=== PATIENT | male | born 1980 | race Caucasian/White ===

== ENCOUNTER 2016-11-24 18:43 | Emergency (ER) | payer OTHER ==
[~2016-11-24] VITALS: Ht 193 cm; Wt 84.9 kg
[2016-11-24 19:08] VITALS: TEMP 37.7; Ht 193 cm; Wt 84.9 kg
[2016-11-24] MEDS ORDERED: SODIUM CHLORIDE 0.9% 1000ML 1,000 ML IV STA (20:08)
--- NOTE | 2016-11-24 20:26 | EMERGENCY ROOM VISIT NOTE ---
History First contact with patient: 19:35 Chief Complaint: DEHYDRATION Stated Complaint: DEHYDRATED POSSIBLE KIDNEY ISSUES Nursing Triage Summary: pt c/o "dehydration" states he has had diarrhea and "some vomiting" since thursday. states " a nohemi at work gave it to me." reports hx of kidney problems " 20 years ago." pt alert and oriented x4. breathing WNL. History of Present Illness The patient is a 36 year old male who presents to the Emergency Room with complaints of abdominal pain. The symptoms began on Thursday morning when the patient began feeling fatigued and unwell. This was accompanied by diarrhea and abdominal pain that worsened throughout the day. Thursday evening the patient complained of significant sweats that kept him up throughout the night. The patient also began to develop right sided flank pain over the weekend and has persisted until today. He also reports that he has limited fluid intake due to nausea and has been trying to drink Pedialyte to supplement his oral intake. He has a past medical history of renal surgery with shortening of the ureters at [facility] 20 years ago due to previous history of bladder enlargement and recurrent UTIs and kidney stones. He has been asymptomatic since the surgery was performed. He denies any burning on urination, radiating pain to his groin, fever, chills, or any other acute complaints. Review of Systems See HPI for pertinent positives and negatives. A total of ten systems were reviewed and were otherwise negative. Past Medical/Surgical History Surgical Problems: (1) History of bladder surgery Social History Smoking Status: Current Every Day Smoker Current/Historical Medications No Active Prescriptions or Reported Meds Physical Exam Vital Signs Date Time Temp Pulse Resp B/P (MAP) Pulse Ox O2 Delivery O2 Flow Rate FiO2 11/24/16 20:24 96 18 132/82 97 Room Air 11/24/16 19:08 37.7 112 18 141/77 99 Room Air Physical Exam GENERAL: Awake, alert, well-appearing, in no distress HENT: Normocephalic, atraumatic. Oropharynx unremarkable. EYES: Normal conjunctiva. Sclera non-icteric. NECK: Supple. No nuchal rigidity. RESPIRATORY: Clear to auscultation. CARDIAC: Regular rate, normal rhythm. Extremities warm and well perfused. Pulses equal. ABDOMEN: Soft, non-distended. Suprapubic tenderness. No rebound or guarding. No masses. RECTAL: Deferred. MUSCULOSKELETAL: Chest examination reveals no tenderness. The back is symmetrical on inspection without obvious abnormality. There is no CVA tenderness to palpation. Patient complaints of right lower back discomfort close at the are of the superior pelvis. LOWER EXTREMITIES: Calves are equal size bilaterally and non-tender. No edema. No discoloration. NEURO: Normal sensorium. No sensory or motor deficits noted. SKIN: No rash or jaundice noted. Medical Decision & Procedures Laboratory Results 11/24/16 20:20 Red Blood Count 5.19, Mean Corpuscular Volume 83.4, Mean Corpuscular Hemoglobin 31.0, Mean Corpuscular Hemoglobin Concent 37.2, Mean Platelet Volume 9.4, Neutrophils (%) (Auto) 87.1, Lymphocytes (%) (Auto) 5.6, Monocytes (%) (Auto) 5.6, Eosinophils (%) (Auto) 0.8, Basophils (%) (Auto) 0.1, Neutrophils # (Auto) 12.52, Lymphocytes # (Auto) 0.80, Monocytes # (Auto) 0.80, Eosinophils # (Auto) 0.11, Basophils # (Auto) 0.02 11/24/16 20:20 Test 11/24/16 20:20 White Blood Count 14.36 K/uL (4.8-10.8) Red Blood Count 5.19 M/uL (4.7-6.1) Hemoglobin 16.1 g/dL (14.0-18.0) Hematocrit 43.3 % (42-52) Mean Corpuscular Volume 83.4 fL (80-100) Mean Corpuscular Hemoglobin 31.0 pg (25-34) Mean Corpuscular Hemoglobin Concent 37.2 g/dl (32-36) Platelet Count 167 K/uL (130-400) Mean Platelet Volume 9.4 fL (7.4-10.4) Neutrophils (%) (Auto) 87.1 % Lymphocytes (%) (Auto) 5.6 % Monocytes (%) (Auto) 5.6 % Eosinophils (%) (Auto) 0.8 % Basophils (%) (Auto) 0.1 % Neutrophils # (Auto) 12.52 K/uL (1.4-6.5) Lymphocytes # (Auto) 0.80 K/uL (1.2-3.4) Monocytes # (Auto) 0.80 K/uL (0.11-0.59) Eosinophils # (Auto) 0.11 K/uL (0-0.5) Basophils # (Auto) 0.02 K/uL (0-0.2) RDW Standard Deviation 37.7 fL (36.4-46.3) RDW Coefficient of Variation 12.4 % (11.5-14.5) Immature Granulocyte % (Auto) 0.8 % Immature Granulocyte # (Auto) 0.11 K/uL (0.00-0.02) Anion Gap 9.0 mmol/L (3-11) Est Creatinine Clear Calc Drug Dose 120.3 ml/min Estimated GFR () 110.2 Estimated GFR (Non- 95.1 BUN/Creatinine Ratio 14.9 (10-20) Calcium Level 8.6 mg/dl (8.5-10.1) Total Bilirubin 8.0 mg/dl (0.2-1) Direct Bilirubin 6.3 mg/dl (0-0.2) Aspartate Amino Transf (AST/SGOT) 23 U/L (15-37) Alanine Aminotransferase (ALT/SGPT) 39 U/L (12-78) Alkaline Phosphatase 154 U/L (45-117) Total Protein 6.8 gm/dl (6.4-8.2) Albumin 2.9 gm/dl (3.4-5.0) Lipase 137 U/L (73-393) Medications Administered Medications (Trade) Dose Ordered Sig/Claus Route Start Time Stop Time Status Last Admin Dose Admin Sodium Chloride 1,000 ml @ 999 mls/hr Q1H1M STAT IV 11/24/16 20:08 11/24/16 21:08 DC 11/24/16 20:23 999 MLS/HR Medical Decision Patient is a 36 year old male that presents with a 4 day history of abdominal pain - Physical Exam reveals suprapubic tenderness - Patient tachycardic with a temperature of 37.7 - Labs: CBC, BMP, LFTs, Lipase - Imaging: Abdominal CT - WBC revealed elevated white count with BMP showing hypokalemia and hyponatremia - Alk phos is mildly elevated although CT scan showed no biliary dilation or intrahepatic findings - Patient was found to have a left hydroureter and left hydronephrosis that appear to be chronic in nature secondary to significant reflux and previous left ureteral reimplantation surgery - Considering the chronic nature of the patients renal findings in addition to the significant clinical findings pointing to an acute gastroenteritis, plan to discharge the patient home with Zofran and encouraging fluid intake Impression Primary Impression: Generalized abdominal pain Additional Impression: Diarrhea Departure Information Dispostion Home / Self-Care Condition GOOD Prescriptions Ondansetron Hcl (ZOFRAN) 4 Mg Tab 4 MG PO Q6H Y for Nausea for 4 Days, #16 TAB Prov: Tim Roche MD 11/24/16 Referrals Manish Johnson D.O. (PCP) Patient Instructions My [facility] Additional Instructions ABDOMINAL PAIN INSTRUCTIONS: Acetaminophen(Tylenol) may be used for fever or pain. Use 1000mg every six hours as needed. Avoid using more than 4000mg in a 24 hour period. Zofran tablets 4mg: Take one every six hours as needed for nausea. Rest and drink plenty of fluids as tolerated. Slow sips of water or sports drinks are recommended instead of large amounts all at once. Once your stomach is settled start with a clear liquid diet (jello, soup broth, etc.) and then advance as tolerated. You should avoid full, heavy meals for about 24 hrs from the time your symptoms resolved. Return to the emergency department in 8-12 hours for reevaluation or sooner if the pain worsens, migrates to the right lower part of your abdomen, vomiting occurs, or you feel it necessary. Return to the ER immediately for worsening or persistent abdominal pain, vomiting, fevers, chest pains, difficulty breathing, black or bloody stools, worsening of your condition, or as needed. Follow up with your primary physician in 2-3 days for a recheck of your current condition. Resident Tracking Resident Involvement: Resident Care Provided Care Provided: Adult ED Problem Qualifiers
[2016-11-24 20:35] LABS: BASO % 0.1 %; BASO ABS # 0.02 K/uL (0-0.2); COMPLETE YES; EOS % 0.8 %; HEMATOCRIT 43.3 % (42-52); IG% 0.8 %; LYMPH % 5.6 %; MEAN CELL VOLUME 83.4 fL (80-100); MEAN CORPUSCULAR HGB CONC 37.2 g/dl (32-36); MEAN PLATELET VOLUME 9.4 fL (7.4-10.4); MONO % 5.6 %; NEUT % 87.1 %; PLATELET COUNT 167 K/uL (130-400); RED BLOOD COUNT 5.19 M/uL (4.7-6.1); WHITE BLOOD COUNT 14.36 K/uL (4.8-10.8)
[2016-11-24 20:56] LABS: BUN/CREATININE RATIO 14.9 (10-20); CALCIUM 8.6 mg/dl (8.5-10.1); POTASSIUM 3.2 mmol/L (3.5-5.1)
--- NOTE | 2016-11-24 21:10 | DIAGNOSTIC IMAGING REPORT ---
CT SCAN OF THE ABDOMEN AND PELVIS WITHOUT CONTRAST CLINICAL HISTORY: Abdominal pain, nausea, vomiting COMPARISON STUDY: No previous studies for comparison. TECHNIQUE: CT scan of the abdomen and pelvis was performed from the lung bases to the proximal femurs. Images are reviewed in the axial, sagittal, and coronal planes. IV contrast was not administered for this examination. A dose lowering technique was utilized adhering to the principles of ALARA. CT DOSE: 445.89 mGy.cm FINDINGS: Lower chest: There are mild bibasal atelectatic changes. There is a trace left pleural effusion. Liver: The unenhanced liver is normal in size, contour, and attenuation. There is no intrahepatic biliary ductal dilatation. Gallbladder: Unremarkable. Spleen: The spleen is the upper limits of normal in size with a prominent lower pole lobulation Pancreas: Unremarkable. Adrenal glands: Unremarkable. Kidneys: There is a complex lower pole right renal cyst with layering calcification. There are lower pole right renal cysts versus hydronephrosis. There is a 9 mm left renal calculus. There is left-sided hydronephrosis and pronounced left-sided hydroureter. No obstructing ureteral calculi are visualized. There is a ureteral transition zone at approximately the level of the femoral heads. Bowel: There are no transition zones indicate bowel obstruction. There is scattered colonic diverticula. There is no acute diverticulitis. The appendix appears normal. Peritoneum: There is no intraperitoneal free air or abdominal ascites. Vasculature: The abdominal aorta is normal in course and caliber. Adenopathy: None. Pelvic viscera: The bladder, and pelvic viscera are unremarkable. Skeletal structures: No destructive osseous lesions are seen. IMPRESSION: 1. No evidence of bowel obstruction. No evidence of free air 2. Normal appendix 3. No evidence of diverticulitis 4. Nonobstructing 9 mm left renal calculus 5. Left-sided hydronephrosis and marked left ureteral dilatation which measures up to 31 mm. There is a transition in ureteral diameter at the level of the femoral heads. No obstructing calculi are visualized. No masses are identified on this noncontrast study. It is conceivable that this represents a primary megaureter. Urological follow-up is recommended. 6. Lower pole right renal cysts versus hydronephrosis. Complex lower pole right renal cyst with layering calcific debris. Mild ectasia of the distal right ureter. Electronically signed by: Krishna Novoa M.D. 11/24/2016 9:09 PM Dictated Date/Time: 11/24/2016 8:59 PM
[2016-11-24] MEDS ORDERED: ONDANSETRON HOME PACK 4MG OD TAB PO STA (22:07)
[2016-11-24] MEDS ORDERED: ONDA4TAB46 PO (22:16)
[2016-11-24 22:24] VITALS: BP 134/90; PULSE 103; O2SAT 97
--- NOTE | 2016-11-24 22:41 | EMERGENCY ROOM VISIT NOTE ---
History Report prepared by Ivan: Josh Cantor Under the Supervision of: Dr. Remigio Stauffer M.D. First contact with patient: 19:35 Chief Complaint: DEHYDRATION Stated Complaint: DEHYDRATED POSSIBLE KIDNEY ISSUES Nursing Triage Summary: pt c/o "dehydration" states he has had diarrhea and "some vomiting" since thursday. states " a nohemi at work gave it to me." reports hx of kidney problems " 20 years ago." pt alert and oriented x4. breathing WNL. History of Present Illness The patient is a 36 year old male who presents to the Emergency Room with complaints of constant lower right sided abdominal pain that started two days ago. He rates his pain as a 5/10 in severity. 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 He states that the next day he started to experience diarrhea, vomiting, and right sided abdominal pain. The patient states that later that night he started to experience diaphoresis. He reports that he did not have an appetite throughout the weekend. The patient states that the right sided abdominal pain and flank pain continued into today. The patient also admits to a fever of 101. He admits that he tried Pedialyte and fluids. The patient admits to a history of an enlarged bladder. He reports that he had to have his bladder and ureters reduced in size 20 years ago. The patient denies blood in diarrhea and recent travel. He denies any recent foreign travel. He has had no recent antibiotic use. Source of History: patient Onset: two days ago Position: abdomen (RLQ) Symptom Intensity: 5/10 Timing: constant Associated Symptoms: + fevers, + nausea, + vomiting, + diarrhea, No melena, No hematochezia Review of Systems See HPI for pertinent positives & negatives. A total of 10 systems reviewed and were otherwise negative. Past Medical & Surgical Surgical Problems: (1) History of bladder surgery Family History Cancer Heart disease Hypertension Kidney disease Kidney stones Lung disease Social History Smoking Status: Current Every Day Smoker Alcohol Use: occasionally Housing Status: lives with family Occupation Status: employed Current/Historical Medications Scheduled PRN Ondansetron Hcl (Zofran), 4 MG PO Q6H PRN for Nausea Allergies Coded Allergies: Cefazolin (Unverified Allergy, Unknown, CODE, 11/24/16) Codeine (Unverified Allergy, Unknown, MOOD CHANGES, 11/24/16) Physical Exam Vital Signs Date Time Temp Pulse Resp B/P (MAP) Pulse Ox O2 Delivery O2 Flow Rate FiO2 11/24/16 22:24 103 18 134/90 97 Room Air 11/24/16 20:24 96 18 132/82 97 Room Air 11/24/16 19:08 37.7 112 18 141/77 99 Room Air Physical Exam Constitutional: Vital signs reviewed. Eyes: Pupils are equal round reactive to light. Conjunctiva are noninjected. ENT: Pharynx is clear without erythema or exudate. Mucous membranes are moist. Neck supple without meningeal signs. Respiratory: Clear to auscultation bilaterally. Breath sounds are equal bilaterally. Cardiovascular: Regular rate and rhythm. No rubs or gallops. GI: Soft, nondistended and suprapubic tenderness. Bowel sounds are present. Musculoskeletal: No peripheral edema. No lower extremity tenderness. No CVA tenderness Integumentary: No cyanosis. Neurological: The patient is awake and alert. No focal deficits. Psychiatric: Normal affect. Medical Decision & Procedures ER Provider Diagnostic Interpretation: CT results as stated below per my review and radiologist interpretation. CT SCAN OF THE ABDOMEN AND PELVIS WITHOUT CONTRAST CLINICAL HISTORY: Abdominal pain, nausea, vomiting COMPARISON STUDY: No previous studies for comparison. TECHNIQUE: CT scan of the abdomen and pelvis was performed from the lung bases to the proximal femurs. Images are reviewed in the axial, sagittal, and coronal planes. IV contrast was not administered for this examination. A dose lowering technique was utilized adhering to the principles of ALARA. CT DOSE: 445.89 mGy.cm FINDINGS: Lower chest: There are mild bibasal atelectatic changes. There is a trace left pleural effusion. Liver: The unenhanced liver is normal in size, contour, and attenuation. There is no intrahepatic biliary ductal dilatation. Gallbladder: Unremarkable. Spleen: The spleen is the upper limits of normal in size with a prominent lower pole lobulation Pancreas: Unremarkable. Adrenal glands: Unremarkable. Kidneys: There is a complex lower pole right renal cyst with layering calcification. There are lower pole right renal cysts versus hydronephrosis. There is a 9 mm left renal calculus. There is left-sided hydronephrosis and pronounced left-sided hydroureter. No obstructing ureteral calculi are visualized. There is a ureteral transition zone at approximately the level of the femoral heads. Bowel: There are no transition zones indicate bowel obstruction. There is scattered colonic diverticula. There is no acute diverticulitis. The appendix appears normal. Peritoneum: There is no intraperitoneal free air or abdominal ascites. Vasculature: The abdominal aorta is normal in course and caliber. Adenopathy: None. Pelvic viscera: The bladder, and pelvic viscera are unremarkable. Skeletal structures: No destructive osseous lesions are seen. IMPRESSION: 1. No evidence of bowel obstruction. No evidence of free air 2. Normal appendix 3. No evidence of diverticulitis 4. Nonobstructing 9 mm left renal calculus 5. Left-sided hydronephrosis and marked left ureteral dilatation which measures up to 31 mm. There is a transition in ureteral diameter at the level of the femoral heads. No obstructing calculi are visualized. No masses are identified on this noncontrast study. It is conceivable that this represents a primary megaureter. Urological follow-up is recommended. 6. Lower pole right renal cysts versus hydronephrosis. Complex lower pole right renal cyst with layering calcific debris. Mild ectasia of the distal right ureter. Electronically signed by: Krishna Novoa M.D. 11/24/2016 9:09 PM Dictated Date/Time: 11/24/2016 8:59 PM Laboratory Results 11/24/16 20:20 Red Blood Count 5.19, Mean Corpuscular Volume 83.4, Mean Corpuscular Hemoglobin 31.0, Mean Corpuscular Hemoglobin Concent 37.2, Mean Platelet Volume 9.4, Neutrophils (%) (Auto) 87.1, Lymphocytes (%) (Auto) 5.6, Monocytes (%) (Auto) 5.6, Eosinophils (%) (Auto) 0.8, Basophils (%) (Auto) 0.1, Neutrophils # (Auto) 12.52, Lymphocytes # (Auto) 0.80, Monocytes # (Auto) 0.80, Eosinophils # (Auto) 0.11, Basophils # (Auto) 0.02 11/24/16 20:20 Test 11/24/16 20:20 White Blood Count 14.36 K/uL (4.8-10.8) Red Blood Count 5.19 M/uL (4.7-6.1) Hemoglobin 16.1 g/dL (14.0-18.0) Hematocrit 43.3 % (42-52) Mean Corpuscular Volume 83.4 fL (80-100) Mean Corpuscular Hemoglobin 31.0 pg (25-34) Mean Corpuscular Hemoglobin Concent 37.2 g/dl (32-36) Platelet Count 167 K/uL (130-400) Mean Platelet Volume 9.4 fL (7.4-10.4) Neutrophils (%) (Auto) 87.1 % Lymphocytes (%) (Auto) 5.6 % Monocytes (%) (Auto) 5.6 % Eosinophils (%) (Auto) 0.8 % Basophils (%) (Auto) 0.1 % Neutrophils # (Auto) 12.52 K/uL (1.4-6.5) Lymphocytes # (Auto) 0.80 K/uL (1.2-3.4) Monocytes # (Auto) 0.80 K/uL (0.11-0.59) Eosinophils # (Auto) 0.11 K/uL (0-0.5) Basophils # (Auto) 0.02 K/uL (0-0.2) RDW Standard Deviation 37.7 fL (36.4-46.3) RDW Coefficient of Variation 12.4 % (11.5-14.5) Immature Granulocyte % (Auto) 0.8 % Immature Granulocyte # (Auto) 0.11 K/uL (0.00-0.02) Anion Gap 9.0 mmol/L (3-11) Est Creatinine Clear Calc Drug Dose 120.3 ml/min Estimated GFR () 110.2 Estimated GFR (Non- 95.1 BUN/Creatinine Ratio 14.9 (10-20) Calcium Level 8.6 mg/dl (8.5-10.1) Total Bilirubin 8.0 mg/dl (0.2-1) Direct Bilirubin 6.3 mg/dl (0-0.2) Aspartate Amino Transf (AST/SGOT) 23 U/L (15-37) Alanine Aminotransferase (ALT/SGPT) 39 U/L (12-78) Alkaline Phosphatase 154 U/L (45-117) Total Protein 6.8 gm/dl (6.4-8.2) Albumin 2.9 gm/dl (3.4-5.0) Lipase 137 U/L (73-393) Laboratory results as reviewed by me. Medications Administered Medications (Trade) Dose Ordered Sig/Claus Route Start Time Stop Time Status Last Admin Dose Admin Sodium Chloride 1,000 ml @ 999 mls/hr Q1H1M STAT IV 11/24/16 20:08 11/24/16 21:08 DC 11/24/16 20:23 999 MLS/HR Ondansetron HCl (ZOFRAN ODT 4MG Home Pack) 1 homepack UD STAT PO 11/24/16 22:07 11/24/16 22:08 DC 11/24/16 22:26 1 HOMEPACK ED Course 2006: The patient was evaluated in room C09. A complete history and physical exam was performed. 2007: Ordered Sodium Chloride 1000 ml @ 999 mls/hr IV. 2151: The resident reevaluated the patient and he is feeling better. He discussed the patient's test results and treatment plan. The patient agrees and is ready for discharge. 2206: Ordered Ondansetron HCl 1 homepack PO. Medical Decision This is a 36-year-old male presents with abdominal pain, vomiting and diarrhea. Differential diagnosis includes colitis, foodborne illness, gastroenteritis, dehydration, electrolyte abnormality. I did perform a limited focused review of portions of the patient's old chart on the electronic medical record. The patient has had no recent pertinent visits to this hospital. I did evaluate the patient as noted above. IV access was established. The patient was placed on a continuous quality assurance monitor final. He was treated with normal saline IV. I did order and review the patient's blood work as noted in the electronic medical record. His white blood cell count is elevated which is a nonspecific finding. He does have hypokalemia consistent with his diarrhea and vomiting. I did order a CT of the abdomen and pelvis. I did review the images myself as well as the radiology report as described above. Appendix is normal. He does have some changes to his system which are likely chronic. The case was discussed with Dr. Blancas of urology. He will follow up as an outpatient with him as well as his regular doctor. His test results were discussed with him. He was treated with IV normal saline. Resident Physician Supervision Note: I did evaluate and examine this patient myself. I did guide management for the patient. I agree with the resident's (Dr. Roche) assessment as discussed. Please see the resident's dictation for further details. Medication Reconcilliation Current Medication List: was personally reviewed by me Blood Pressure Screening Patient's blood pressure: Elevated blood pressure Impression Primary Impression: Dehydration Additional Impressions: Vomiting Diarrhea Hypokalemia Lower abdominal pain Scribe Attestation The scribe's documentation has been prepared under my direct and personally reviewed by me in its entirety. I confirm that the note above accurately reflects all work, treatment, procedures, and medical decision making performed by me. Departure Information Dispostion Home / Self-Care Prescriptions Ondansetron Hcl (ZOFRAN) 4 Mg Tab 4 MG PO Q6H Y for Nausea for 4 Days, #16 TAB Prov: Tim Roche MD 11/24/16 Referrals No Doctor, Assigned (PCP) Forms HOME CARE DOCUMENTATION FORM, IMPORTANT VISIT INFORMATION, WORK / SCHOOL INSTRUCTIONS Patient Instructions My [facility] Additional Instructions ABDOMINAL PAIN INSTRUCTIONS: Acetaminophen(Tylenol) may be used for fever or pain. Use 1000mg every six hours as needed. Avoid using more than 4000mg in a 24 hour period. Zofran tablets 4mg: Take one every six hours as needed for nausea. Rest and drink plenty of fluids as tolerated. Slow sips of water or sports drinks are recommended instead of large amounts all at once. Once your stomach is settled start with a clear liquid diet (jello, soup broth, etc.) and then advance as tolerated. You should avoid full, heavy meals for about 24 hrs from the time your symptoms resolved. Return to the emergency department in 8-12 hours for reevaluation or sooner if the pain worsens, migrates to the right lower part of your abdomen, vomiting occurs, or you feel it necessary. Return to the ER immediately for worsening or persistent abdominal pain, vomiting, fevers, chest pains, difficulty breathing, black or bloody stools, worsening of your condition, or as needed. Follow up with your primary physician in 2-3 days for a recheck of your current condition. Problem Qualifiers Additional Impressions: Vomiting Vomiting type: unspecified Vomiting Intractability: non-intractable Nausea presence: with nausea Qualified Codes: R11.2 - Nausea with vomiting, unspecified Diarrhea Diarrhea type: unspecified type Qualified Codes: R19.7 - Diarrhea, unspecified
== END 2016-11-24 22:30 | disposition home or self-care (01) ==
LOC: C.EDB 18:45 → C.EDC 22:30
DX: E86.0 Dehydration (principal); R11.2 Nausea with vomiting, unspecified; E87.6 Hypokalemia; R19.7 Diarrhea, unspecified; R10.30 Lower abdominal pain, unspecified; R10.84 Generalized abdominal pain; F17.210 Nicotine dependence, cigarettes, uncomplicated; Z80.9 Family history of malignant neoplasm, unspecified; Z82.49 Family history of ischemic heart disease and other diseases of the circulatory system; Z84.1 Family history of disorders of kidney and ureter; Z83.6 Family history of other diseases of the respiratory system